=== PATIENT | female | born 1995 | race Caucasian/White ===

== ENCOUNTER 2017-03-07 17:57 | Emergency (ER) | payer SELFPAY ==
[2017-03-07 19:13] LABS: APPEARANCE CLEAR (CLEAR); COLOR YELLOW (YELLOW); SPECIFIC GRAVITY 1.015 (1.005-1.020)
[2017-03-07 19:14] LABS: BILIRUBIN NEGATIVE (NEGATIVE); GLUCOSE NEGATIVE (NEGATIVE); KETONE NEGATIVE (NEGATIVE); NITRITE NEGATIVE (NEGATIVE); PROTEIN TRACE mg/dL (NEGATIVE); UROBILINOGEN NORMAL (NORMAL)
[2017-03-07 19:16] LABS: BACTERIA FEW /hpf (NONE SEEN); RED CELLS - URINE 0-5 /hpf (0-5)
[2017-03-07 19:18] LABS: HCG URINE NEGATIVE (NEGATIVE)
[2017-03-07 19:49] LABS: BASOPHILS 0.3 % (0-2); EOSINOPHILS 2.1 % (0-7); HEMATOCRIT 39.4 % (36.0-48.0); HEMOGLOBIN 12.3 g/dL (12-16); IMMATURE GRANULOCYTES 0.2 % (0-5); LYMPHOCYTES 38.1 % (15-50); MCH 24.5 pg (26.0-34.0); MCHC 31.2 g/dL (31.0-37.0); MCV 78.5 fL (80.0-100.0); MEAN PLATELET VOLUME 10.5 fL (7.4-10.4); MONOCYTES 8.2 % (2-11); NEUTROPHILS 51.1 % (40-80); RBC 5.02 10x6/uL (4.00-5.40); WBC 11.4 10x3/uL (4.8-10.8)
[2017-03-07 19:52] LABS: PLATELET COUNT 321 10x3/uL (130-400)
[2017-03-07 19:58] LABS: AMYLASE - SERUM 40 U/L (25-115); LIPASE 88 U/L (73-393)
== END 2017-03-07 21:37 | disposition home or self-care (01) ==
LOC: D.ER 17:57
PROVIDERS: Emergency Medicine; Family Medicine
DX: R10.9 Unspecified abdominal pain (principal); A59.01 Trichomonal vulvovaginitis; F17.200 Nicotine dependence, unspecified, uncomplicated

== ENCOUNTER 2017-09-16 16:52 | Emergency (ER) | payer MEDICAID | END 2017-09-16 17:41 | disposition home or self-care (01) | LOC: D.ER 16:52 | DX: R07.89 Other chest pain (principal); T14.8XXA Other injury of unspecified body region, initial encounter; X58.XXXA Exposure to other specified factors, initial encounter; Y93.89 Activity, other specified; Y92.89 Other specified places as the place of occurrence of the external cause; F17.200 Nicotine dependence, unspecified, uncomplicated; I45.10 Unspecified right bundle-branch block ==

== ENCOUNTER 2017-09-24 17:50 | Emergency (ER) | payer MEDICAID | END 2017-09-24 19:29 | disposition home or self-care (01) | LOC: D.ER 17:50 | DX: T14.8XXA Other injury of unspecified body region, initial encounter (principal); Y04.2XXA Assault by strike against or bumped into by another person, initial encounter; Y93.89 Activity, other specified; Y92.9 Unspecified place or not applicable ==

== ENCOUNTER 2017-12-28 13:40 | Emergency (ER) | payer MEDICAID ==
[~2017-12-28] VITALS: Ht 167.6 cm; Wt 86.4 kg
[2017-12-28 13:51] VITALS: BP 143/65; Ht 167.6 cm; Wt 86.4 kg
== END 2017-12-28 15:05 | disposition left against medical advice (07) ==
LOC: D.ER 13:40
DX: R51 Headache (principal)